=== PATIENT | female | born 1950 | race Caucasian/White ===

== ENCOUNTER 2021-03-20 06:45 | Day surgery (SDC) | payer MEDICARE ==
[2021-03-15 11:54] LABS: CLARITY,URINE CLEAR (Clear); GLUCOSE, URINE NEGATIVE (Neg); KETONES,URINE NEGATIVE (Neg); LEUKOCYTE ESTERASE ,URINE NEGATIVE (Neg); NITRITES, URINE NEGATIVE (Neg); OCCULT BLOOD,URINE NEGATIVE (Neg); PROTEIN,URINE NEGATIVE (Neg); UROBILINOGEN,URINE 0.2 E.U/dL (0.2-1.0)
[2021-03-15 12:01] LABS: COLOR,URINE STRAW (Yellow); UA COLLECTION TYPE CLN CATCH MIDSTREAM
[2021-03-15 12:09] LABS: BASOPHILS # (AUTO) 0.1 X10'3 (0-0.2); BASOPHILS % (AUTO) 0.9 % (0-1); EOSINOPHILS # (AUTO) 0.1 X10'3 (0-0.9); EOSINOPHILS % (AUTO) 1.2 % (0-6); LYMPHOCYTES # (AUTO) 1.6 X10'3 (1.1-4.8); LYMPHOCYTES % (AUTO) 25.4 % (21-51); MEAN CORPUSCULAR HEMOGLOBIN 32.3 PG (27.0-31.0); MEAN CORPUSCULAR HGB CONC 34.1 g/dL (33.0-36.5); MEAN CORPUSCULAR VOLUME 94.9 FL (78-98); MEAN PLATELET VOLUME 7.9 FL (7.4-10.4); MONOCYTES # (AUTO) 0.7 X10'3 (0-0.9); MONOCYTES % (AUTO) 10.8 % (2-12); NEUTROPHILS # (AUTO) 3.9 X10'3 (1.8-7.7); NEUTROPHILS % (AUTO) 61.7 % (42-75); PRE OP HEMATOCRIT 43.2 % (35.0-45.0); PRE OP HEMOGLOBIN 14.7 g/dL (12.0-16.0); PRE OP PLATELET COUNT 300 X10'3 (140-440); RED BLOOD COUNT 4.55 X10'6 (4.20-5.60); RED CELL DISTRIBUTION WIDTH 13.7 % (11.5-14.5)
[2021-03-15 12:25] LABS: ALBUMIN 3.9 G/DL (3.4-5.0); ALBUMIN/GLOBULIN RATIO 1.2 (1.1-1.5); ALKALINE PHOSPHATASE 72 IU/L (46-116); BLOOD UREA NITROGEN 10 MG/DL (7-18); BUN/CREATININE RATIO 12.5 (6.6-38.0); CHLORIDE 106 MMOL/L (99-107); PRE OP ALT 17 U/L (30-65); PRE OP ANION GAP 9 (8-16); PRE OP AST 18 U/L (10-37); PRE OP BILIRUB, TOTAL 0.5 MG/DL (0.0-1.0); PRE OP GLUCOSE 97 MG/DL (70-104); PRE OP POTASSIUM 4.1 MMOL/L (3.4-5.1); PRE OP SODIUM 143 MMOL/L (135-145); TOTAL CARBON DIOXIDE 27.9 MMOL/L (24-32); TOTAL PROTEIN 7.1 G/DL (6.4-8.2); eGFR 71 ML/MIN
[2021-03-20] VITALS (9 sets, daily range): BP systolic 96–131; BP diastolic 52–77
[~2021-03-20] VITALS: Ht 167.6 cm; Wt 68.0 kg
[~2021-03-20 06:45] MED LIST: LEVO100T9 PO; famotidine 20mg tablet PO ONE; ringers solution, lacted 1,000 ML IV SCH
[2021-03-20] MEDS ORDERED: LIDOcaine 1% 30ml preserv. free vial ONE (07:08)
[2021-03-20] MEDS ORDERED: BUPIVAcaine/PF 2.5 mg/ml (0.25%) 30ml vial ONE (07:08)
[2021-03-20] MEDS ORDERED: morphine 2 MG/ML inj. syringe IV PRN (07:10)
[2021-03-20] MEDS ORDERED: hydrALAZINE 20mg/ml inj. IV PRN (07:10)
[2021-03-20] MEDS ORDERED: labetalol 20mg/4ml (5mg/ml) syringe IV PRN (07:10)
[2021-03-20] MEDS ORDERED: morphine 4 MG/ML inj SYRINge IV PRN (07:10)
[2021-03-20] MEDS ORDERED: ringers solution, lacted 1,000 ML IV SCH (07:10)
[2021-03-20] MEDS ORDERED: fentaNYL/PF 50MCG/1 ML 2ML syringe IV PRN ×2 (07:10)
[2021-03-20] MEDS ORDERED: ondansetron/PF 4mg/2ml inj IV PRN (07:10)
[2021-03-20] MEDS ORDERED: ceFAZolin 2gm in dextrose, iso 50 ML IV ONE (08:05)
[2021-03-20] MEDS ORDERED: ondansetron/PF 4mg/2ml inj ONE (09:05)
[2021-03-20] MEDS ORDERED: LIDOcaine 2% (20mg/ml) 5ml vial ONE (09:05)
[2021-03-20] MEDS ORDERED: propofol inj 20 ML IV ONE (09:05)
[2021-03-20] MEDS ORDERED: rocuronium 10mg/ml inj IV ONE (09:05)
[2021-03-20] MEDS ORDERED: fentaNYL/PF 50MCG/1 ML 2ML syringe ONE (09:16)
[2021-03-20] MEDS ORDERED: HYDROcodone/acetaminophen 5mg/325mg tablet PO PRN (10:10)
[2021-03-20] MEDS ORDERED: acetaminophen 325mg tablet PO PRN (10:10)
--- NOTE | 2021-03-20 10:10 | NUR ---
Received from OR via , accompanied by Anesthesiologist and report given by Anesthesiolgist. PATINET WAKING UP, DENIES PAIN, V/S WNL, CSM INTACT, 20G PIV LUE, BANDAIDS TO ABDOMEN LAP SITES CDI. SCD ON.
--- NOTE | 2021-03-20 11:20 | NUR ---
PATIENT A&OX4, DENIES PAIN, V/S WNL, CSM INTACT, 20G PIV LUE D/C, BANDAIDS TO ABDOMEN LAP SITES CDI. SCD OFF. I HAVE REVIEWED D/C INSTRUCTIONS WITH PATIENT AND SHE HAS VERBALIZED UNDERSTANDING. PATIENT D/C HOME WITH ALL BELONGINGS AND FAMILY GAVE TRANSPORT.
== END 2021-03-20 11:20 | disposition home or self-care (01) ==
LOC: PAS 06:45
PROVIDERS: ATTEND Surgery
DX: K40.90 Unilateral inguinal hernia, without obstruction or gangrene, not specified as recurrent (principal); E03.9 Hypothyroidism, unspecified; Z20.822 Contact with and (suspected) exposure to COVID-19; Z79.899 Other long term (current) drug therapy; Z98.890 Other specified postprocedural states
CPT/HCPCS: 36415; 49650; 80053; 81003; 82948; 85025; 93005; C1781; J2405; J2704; J3010; J3490; J7030; J7120; U0003; U0005; Z7506; Z7508; Z7512; A4215; A4618